=== PATIENT | male | born 1955 | race Caucasian/White ===

== ENCOUNTER 2017-05-07 11:50 | Inpatient (IN) | payer MEDICARE, MEDICAID ==
[~2017-05-07] VITALS: Ht 167.6 cm; Wt 79.4 kg
[2017-05-08] VITALS: BP 139/69
[2017-05-08] MEDS ORDERED: FAMOTIDINE20 MG ORAL (00:52)
[2017-05-08] MEDS ORDERED: ATENOLOL50 MG ORAL (00:52)
[2017-05-08] MEDS ORDERED: LISINOPRIL10 MG ORAL (00:52)
[2017-05-08] MEDS ORDERED: CIPROFLOXACIN500 M2 ORAL (00:52)
[2017-05-08] MEDS ORDERED: IBUPROFEN600 MG ORAL (00:52)
[2017-05-08] MEDS ORDERED: ACETAMINOPHEN-1 EAC2 ORAL (00:52)
[2017-05-08] MEDS ORDERED: HYDROCHLOROTHIA25 MG ORAL (00:52)
[2017-05-08] MEDS ORDERED: POTASSIUM CHLO10 ME3 ORAL (00:52)
[2017-05-08] MEDS ORDERED: AMLODIPINE BESY10 MG ORAL (00:52)
[2017-05-08] MEDS ORDERED: OMEPRAZOLE20 M2 ORAL (00:52)
[2017-05-08] MEDS ORDERED: ASPIRIN EC81 MG ORAL (00:52)
[2017-05-08] MEDS ORDERED: BACLOFEN10 MG ORAL (00:52)
[2017-05-08] MEDS ORDERED: ATORVASTATIN CA40 MG ORAL (00:52)
[2017-05-08] MEDS ORDERED: Vancomycin 1.5 GM/D5W 250ML IVPB ONE (03:00)
[2017-05-08 04:00] VITALS: BP 149/97
[2017-05-08 08:00] VITALS: BP 149/88
[2017-05-08] MEDS: Aspirin EC 81mg tab ORAL SCH (08:22)
[2017-05-08] MEDS: Tylenol #4 Tab (300mg/60mg) ORAL SCH ×3 (08:23→17:29)
[2017-05-08] MEDS: Lisinopril 20mg tab ORAL SCH (08:25)
[2017-05-08 09:14] LABS: BASOPHILS % (AUTO) 0.5 % (0.0-2.0); EOSINOPHILS % (AUTO) 1.8 % (0.0-3.0); LYMPHOCYTES % (AUTO) 16.8 % (20.0-45.0); MEAN CORPUSCULAR HEMOGLOBIN 32.6 PG (27.0-31.0); MEAN CORPUSCULAR HGB CONC 34.4 G/DL (32.0-36.0); MEAN CORPUSCULAR VOLUME 95 FL (80-99); MEAN PLATELET VOLUME 7.3 FL (6.5-10.1); MONOCYTES % (AUTO) 6.6 % (1.0-10.0); NEUTROPHILS % (AUTO) 74.3 % (45.0-75.0); PLATELET COUNT 167 K/UL (150-450); RED BLOOD COUNT 4.03 M/UL (4.70-6.10); RED CELL DISTRIBUTION WIDTH 10.3 % (11.6-14.8); WHITE BLOOD COUNT 11.6 K/UL (4.8-10.8)
[2017-05-08 09:48] LABS: ANION GAP 6 mmol/L (5-15); CALCIUM 8.6 MG/DL (8.5-10.1); CARBON DIOXIDE 31 MMOL/L (21-32); CHLORIDE 105 MMOL/L (98-107); CREATININE 0.7 MG/DL (0.55-1.30); GLOMERULAR FILTRATION RATE > 60 mL/min (>60); POTASSIUM 3.6 MMOL/L (3.5-5.1); SODIUM 142 MMOL/L (136-145)
[2017-05-08] MEDS ORDERED: NS 275ml ONE (10:23)
[2017-05-08] MEDS ORDERED: Tubing IV Secondary IV ONE (10:23)
[2017-05-08 12:01] VITALS: BP 144/86
--- NOTE | 2017-05-08 12:46 | History and Physical ---
History of Present Illness General Date patient seen: May 09, 2017 Time patient seen: 13:00 Reason for Hospitalization: b/l leg cellulitis Present Illness HPI 61y/o male with pmh of HTN, HLD, GERD who presents w/ c/o b/l leg swelling/ redness/pain. Pt lives in [facility] and states he has had worsening b/l leg swelling/pain/redness/warmth for the past several days. C/o subjective fevers/ chills, nausea (no emesis), intermittent abd pain. Denies chest pain, SOB, d/c, dysuria. Also c/o generalized weakness, difficulty ambulating 2/2 b/l leg pain. Pt also noted to be hypotensive initially but this quickly improved w/ IV fluids. Allergies: Coded Allergies: No Known Allergies (Unverified , 05/08/17) Medication History Scheduled Acetaminophen With Codeine (T#4) (Tylenol #4 Tab*), 1 TAB ORAL TID, (Reported) Amlodipine Besylate* (Amlodipine Besylate*), 10 MG ORAL DAILY, (Reported) Aspirin Ec* (Aspirin Ec*), 81 MG ORAL DAILY, (Reported) Atenolol* (Tenormin*), 50 MG ORAL DAILY, (Reported) Atorvastatin Calcium* (Atorvastatin Calcium*), 40 MG ORAL BEDTIME, (Reported) Baclofen* (Baclofen*), 10 MG ORAL BID, (Reported) Ciprofloxacin Hcl* (Ciprofloxacin Hcl*), 500 MG ORAL EVERY 12 HOURS, (Reported) Famotidine (Famotidine), 20 MG ORAL TWICE A DAY, (Reported) Hydrochlorothiazide* (Hydrochlorothiazide*), 25 MG ORAL DAILY, (Reported) Ibuprofen* (Motrin*), 800 MG ORAL BID, (Reported) Lisinopril* (Lisinopril*), 10 MG ORAL DAILY, (Reported) Omeprazole (Omeprazole), 20 MG ORAL DAILY, (Reported) Potassium Chloride (Potassium Chloride), 10 MEQ ORAL DAILY, (Reported) Patient History History Provided By: Patient, Medical Record Healthcare decision maker Resuscitation status Advanced Directive on File Past Medical/Surgical History Past Medical/Surgical History: (1) HTN (hypertension) (2) HLD (hyperlipidemia) (3) GERD (gastroesophageal reflux disease) Family History Family History: Patient reports no known family medical history. Social History Social History: (1) Lives alone without help available Review of Systems Constitutional: Reports: fever Eye: Reports: no symptoms ENT: Reports: no symptoms Respiratory: Reports: no symptoms Cardiovascular: Reports: no symptoms Gastrointestinal: Reports: abdominal pain, nausea Genitourinary: Reports: no symptoms Musculoskeletal: Reports: muscle pain Skin: Reports: no symptoms Psychiatric: Reports: no symptoms Neurological: Reports: no symptoms Endocrine: Reports: no symptoms Hematologic/Lymphatic: Reports: no symptoms All Other Systems: negative except mentioned in HPI Physical Exam Physical Exam Narrative General: alert, cooperative, no distress, appears stated age Head: normocephalic, without obvious abnormality, atraumatic Eyes: conjunctivae/corneas clear. PERRL, EOM's intact Throat: lips, mucosa, and tongue normal. MMM Neck: supple, symmetrical, trachea midline, and no JVD Lungs: clear to auscultation bilaterally Heart: regular rate and rhythm, S1, S2 normal, no murmur, click, rub or gallop Abdomen: soft, non-tender, non-distended, bowel sounds normal; no masses or organomegaly Extremities: extremities normal, atraumatic, no cyanosis or edema Pulses: 2+ and symmetric Skin: +B/l LE erythema/edema/warmth/TTP to below knees Neurologic: grossly normal, no focal deficits Last 24 Hour Vital Signs Date Time Temp Pulse Resp B/P (MAP) Pulse Ox O2 Delivery O2 Flow Rate FiO2 05/08/17 12:01 98.0 70 20 144/86 97 Room Air 05/08/17 11:02 70 149/97 05/08/17 09:22 98.2 05/08/17 09:22 98.2 05/08/17 08:25 149/97 05/08/17 08:24 70 149/97 05/08/17 08:00 97.9 68 20 149/88 96 Room Air 05/08/17 04:00 98.2 70 20 149/97 96 Room Air 05/08/17 00:00 97.9 68 18 139/69 97 Room Air Laboratory Tests Test 05/08/17 08:50 White Blood Count 11.6 K/UL (4.8-10.8) H Red Blood Count 4.03 M/UL (4.70-6.10) L Hemoglobin 13.1 G/DL (14.2-18.0) L Hematocrit 38.1 % (42.0-52.0) L Mean Corpuscular Volume 95 FL (80-99) Mean Corpuscular Hemoglobin 32.6 PG (27.0-31.0) H Mean Corpuscular Hemoglobin Concent 34.4 G/DL (32.0-36.0) Red Cell Distribution Width 10.3 % (11.6-14.8) L Platelet Count 167 K/UL (150-450) Mean Platelet Volume 7.3 FL (6.5-10.1) Neutrophils (%) (Auto) 74.3 % (45.0-75.0) Lymphocytes (%) (Auto) 16.8 % (20.0-45.0) L Monocytes (%) (Auto) 6.6 % (1.0-10.0) Eosinophils (%) (Auto) 1.8 % (0.0-3.0) Basophils (%) (Auto) 0.5 % (0.0-2.0) Sodium Level 142 MMOL/L (136-145) Potassium Level 3.6 MMOL/L (3.5-5.1) Chloride Level 105 MMOL/L (98-107) Carbon Dioxide Level 31 MMOL/L (21-32) Anion Gap 6 mmol/L (5-15) Blood Urea Nitrogen 18 mg/dL (7-18) Creatinine 0.7 MG/DL (0.55-1.30) Estimat Glomerular Filtration Rate > 60 mL/min (>60) Glucose Level 104 MG/DL (74-106) Calcium Level 8.6 MG/DL (8.5-10.1) Height (Feet): 5 Height (Inches): 6.00 Weight (Pounds): 175 Medications Current Medications Medications (Trade) Dose Ordered Sig/Jay Route PRN Reason Start Time Stop Time Status Last Admin Dose Admin Acetaminophen/ Codeine Phosphate (Tylenol #4) 1 ea TID ORAL 05/08/17 09:00 05/15/17 08:59 05/08/17 08:23 Amlodipine Besylate (Norvasc) 10 mg DAILY ORAL 05/08/17 09:00 06/07/17 08:59 05/08/17 08:24 Aspirin (Ecotrin) 81 mg DAILY ORAL 05/08/17 09:00 06/07/17 08:59 05/08/17 08:22 Atenolol (Tenormin) 50 mg DAILY ORAL 05/08/17 09:00 06/07/17 08:59 05/08/17 11:02 Atorvastatin Calcium (Lipitor) 40 mg BEDTIME ORAL 05/08/17 21:00 06/07/17 20:59 Baclofen (Lioresal) 10 mg BID ORAL 05/08/17 09:00 06/07/17 08:59 05/08/17 08:24 Famotidine (Pepcid I.v.) 20 mg Q12HR IVP 05/08/17 09:00 06/07/17 08:59 UNV Hydrochlorothiazide (Hydrodiuril) 25 mg DAILY ORAL 05/08/17 09:00 06/07/17 08:59 05/08/17 08:24 Ibuprofen (Advil) 800 mg BID ORAL 05/08/17 09:00 06/07/17 08:59 05/08/17 08:26 Lisinopril (Prinivil) 10 mg DAILY ORAL 05/08/17 09:00 06/07/17 08:59 05/08/17 08:25 Pantoprazole (Protonix) 40 mg DAILY ORAL 05/08/17 09:00 06/07/17 08:59 05/08/17 08:24 Potassium Chloride (K-Dur) 10 meq DAILY ORAL 05/08/17 09:00 06/07/17 08:59 05/08/17 11:04 Vancomycin HCl (Vanco rx to dose) 1 ea DAILY PRN MISC Per rx protocol 05/08/17 02:30 06/07/17 02:29 Vancomycin HCl 1 gm/Dextrose 275 ml @ 183.708 mls/hr Q12HR@0600,1800 IVPB 05/08/17 18:00 05/13/17 17:59 Assessment/Plan Problem List: (1) Generalized weakness ICD Codes: R53.1 - Weakness SNOMED: 07541343 (2) Hypotension ICD Codes: I95.9 - Hypotension, unspecified SNOMED: 91185898 (3) Bilateral lower leg cellulitis ICD Codes: L03.116 - Cellulitis of left lower limb; L03.115 - Cellulitis of right lower limb SNOMED: 626927834 (4) HTN (hypertension) ICD Codes: I10 - Essential (primary) hypertension SNOMED: 75146958 (5) HLD (hyperlipidemia) ICD Codes: E78.5 - Hyperlipidemia, unspecified SNOMED: 32473779 (6) GERD (gastroesophageal reflux disease) ICD Codes: K21.9 - Gastro-esophageal reflux disease without esophagitis SNOMED: 436825108 Status: stable Assessment/Plan Admit inpt ID consulted Empiric vancomycin (05/08-) Check BLE venous duplex Check U/A w/ reflex IVFs Trend CBC, BMP Check B12/folate, TSH, Vit D, ferritin, Fe panel Cont home meds but caution BP meds PT/OT eval Pt may possibly need SNF vs [facility] placement as he lives in [facility] alone DVT Prophylaxis: SCD, HSQ Code Status: Full Hospital Classification Declaration: Based on this initial evaluation, and depending on the patient's clinical course, I anticipate that this patient will require hospitalization for 2-3 days for BLE cellulitis, hypotension and close respiratory/hemodynamic monitoring. Disposition: Once the patient is stable to leave the hospital, I anticipate the patient will likely be discharged to the following environment: SNF vs [facility] I spent 70 minutes on this patient's case, and 37 minutes were dedicated to counseling and/or care coordination. Discussed with patient/family, nursing staff, SW/CM, ID regarding clinical status, treatment course, and disposition planning. Time of note may not reflect time of encounter. Xena Lu M.D. May 08, 2017 12:46
--- NOTE | 2017-05-08 14:55 | Infectious Diseases Prog Note ---
Assessment/Plan Assessment/Plan Full consult to follow: A) 1) bilateral leg cellulitis, mild leukocytosis 2) pmh noted 3) allergies - negative P) 1) vancomycin 2) watch labs 3) d/w Dr. Mccallum 4) thank you Subjective Allergies: Coded Allergies: No Known Allergies (Unverified , 05/08/17) Objective Vital Signs Last 24 Hour Vital Signs Date Time Temp Pulse Resp B/P (MAP) Pulse Ox O2 Delivery O2 Flow Rate FiO2 05/08/17 14:33 98.0 05/08/17 12:01 98.0 70 20 144/86 97 Room Air 05/08/17 11:02 70 149/97 05/08/17 09:22 98.2 05/08/17 08:25 149/97 05/08/17 08:24 70 149/97 05/08/17 08:00 97.9 68 20 149/88 96 Room Air 05/08/17 04:00 98.2 70 20 149/97 96 Room Air 05/08/17 00:00 97.9 68 18 139/69 97 Room Air Height (Feet): 5 Height (Inches): 6.00 Weight (Pounds): 175 Laboratory Tests Test 05/08/17 08:50 White Blood Count 11.6 K/UL (4.8-10.8) H Red Blood Count 4.03 M/UL (4.70-6.10) L Hemoglobin 13.1 G/DL (14.2-18.0) L Hematocrit 38.1 % (42.0-52.0) L Mean Corpuscular Volume 95 FL (80-99) Mean Corpuscular Hemoglobin 32.6 PG (27.0-31.0) H Mean Corpuscular Hemoglobin Concent 34.4 G/DL (32.0-36.0) Red Cell Distribution Width 10.3 % (11.6-14.8) L Platelet Count 167 K/UL (150-450) Mean Platelet Volume 7.3 FL (6.5-10.1) Neutrophils (%) (Auto) 74.3 % (45.0-75.0) Lymphocytes (%) (Auto) 16.8 % (20.0-45.0) L Monocytes (%) (Auto) 6.6 % (1.0-10.0) Eosinophils (%) (Auto) 1.8 % (0.0-3.0) Basophils (%) (Auto) 0.5 % (0.0-2.0) Sodium Level 142 MMOL/L (136-145) Potassium Level 3.6 MMOL/L (3.5-5.1) Chloride Level 105 MMOL/L (98-107) Carbon Dioxide Level 31 MMOL/L (21-32) Anion Gap 6 mmol/L (5-15) Blood Urea Nitrogen 18 mg/dL (7-18) Creatinine 0.7 MG/DL (0.55-1.30) Estimat Glomerular Filtration Rate > 60 mL/min (>60) Glucose Level 104 MG/DL (74-106) Calcium Level 8.6 MG/DL (8.5-10.1) Current Medications Medications (Trade) Dose Ordered Sig/Jay Route PRN Reason Start Time Stop Time Status Last Admin Dose Admin Acetaminophen/ Codeine Phosphate (Tylenol #4) 1 ea TID ORAL 05/08/17 09:00 05/15/17 08:59 05/08/17 13:34 Amlodipine Besylate (Norvasc) 10 mg DAILY ORAL 05/08/17 09:00 06/07/17 08:59 05/08/17 08:24 Aspirin (Ecotrin) 81 mg DAILY ORAL 05/08/17 09:00 06/07/17 08:59 05/08/17 08:22 Atenolol (Tenormin) 50 mg DAILY ORAL 05/08/17 09:00 06/07/17 08:59 05/08/17 11:02 Atorvastatin Calcium (Lipitor) 40 mg BEDTIME ORAL 05/08/17 21:00 06/07/17 20:59 Baclofen (Lioresal) 10 mg BID ORAL 05/08/17 09:00 06/07/17 08:59 05/08/17 08:24 Famotidine (Pepcid I.v.) 20 mg Q12HR IVP 05/08/17 09:00 06/07/17 08:59 UNV Hydrochlorothiazide (Hydrodiuril) 25 mg DAILY ORAL 05/08/17 09:00 06/07/17 08:59 05/08/17 08:24 Ibuprofen (Advil) 800 mg BID ORAL 05/08/17 09:00 06/07/17 08:59 05/08/17 08:26 Lisinopril (Prinivil) 10 mg DAILY ORAL 05/08/17 09:00 06/07/17 08:59 05/08/17 08:25 Pantoprazole (Protonix) 40 mg DAILY ORAL 05/08/17 09:00 06/07/17 08:59 05/08/17 08:24 Potassium Chloride (K-Dur) 10 meq DAILY ORAL 05/08/17 09:00 06/07/17 08:59 05/08/17 11:04 Vancomycin HCl (Vanco rx to dose) 1 ea DAILY PRN MISC Per rx protocol 05/08/17 02:30 06/07/17 02:29 Vancomycin HCl 1 gm/Dextrose 275 ml @ 183.708 mls/hr Q12HR@0600,1800 IVPB 05/08/17 18:00 05/13/17 17:59 SYLVIA ALLEN May 08, 2017 14:55
[2017-05-08 16:00] VITALS: BP 139/79
--- NOTE | 2017-05-08 16:45 | Consultation ---
DATE OF CONSULTATION: 05/08/2017 INFECTIOUS DISEASE CONSULTATION CONSULTING PHYSICIAN: Stan Wallace M.D. ATTENDING PHYSICIAN: Erika Pham M.D. I was asked by Dr. Mccallum, Dr. Pham's associate to see this patient. REASON FOR CONSULTATION: The patient's chief complaint coming into the hospital is bilateral leg swelling and warmth and cellulitis. HISTORY OF PRESENT ILLNESS: This is a 61-year-old male, who comes into the [facility] with bilateral leg cellulitis and hypertension. Infectious Diseases consultation requested for antibiotic management. The patient has had pain in his legs for several days. The patient was started on vancomycin, which I concur with. Case discussed with Dr. Mccallum and the patient. The patient also initially was hypotensive but blood pressure is stable at this time. Not clear if he has hypotension or hypertension, his blood pressure is elevated actually. MAR was noted. Orders noted. Notes and records were reviewed. PAST MEDICAL HISTORY: The patient's past medical history includes the following. The patient has a past medical history of hypertension. He has a history of emphysema/COPD, history of nicotine dependency. He states history of stroke, it is unclear if he has had any stroke in the past, I am not sure if he has had a vascular stroke in the past. The patient has no history of diabetes. He does have a history of hernia, . He has a history of hypercholesterolemia and hyperlipidemia. MEDICATIONS: Upon reviewing the MAR, he is on the following medications. He is on Lipitor, vancomycin, acetaminophen. He is on amlodipine, Norvasc, aspirin, atenolol, baclofen, hydrochlorothiazide, ibuprofen, lisinopril, potassium chloride, famotidine, pantoprazole, and vancomycin. Vancomycin to be dosed by pharmacy. ALLERGIES: No known drug or antibiotic allergies. No antibiotic allergies. SOCIAL HISTORY: Positive for smoking. No alcohol or drug abuse. FAMILY HISTORY: Noncontributory. Negative for exposure to tuberculosis or cancer. REVIEW OF SYSTEMS: CONSTITUTIONAL: The patient has generalized weakness and fatigue. No focal weakness. No fever, chills, night sweats, or weight loss. HEAD AND NECK: No thrush or dysphagia. No neck stiffness. CARDIAC: No chest pain or palpitation. GASTROINTESTINAL: No nausea, vomiting, or diarrhea. GENITOURINARY: No Grady. No dysuria or frequency. PULMONARY: No congestion or short of breath. No hemoptysis or secretions. SKIN: No rash or itching. EXTREMITIES: He has lower extremity pain. NEUROLOGIC: No seizures. PHYSICAL EXAMINATION: GENERAL: Alert and responsive, in no acute distress. VITAL SIGNS: Temperature is 98.0 degrees, pulse rate 70, respiratory rate 20, blood pressure 144/86, saturation 97%. HEAD AND NECK: Oral exam, no thrush. Eye exam, no icterus. Normocephalic. No facial droop. NECK: No neck stiffness. Neck is supple. HEART: Regular. No gallop or murmur. No friction rub. LUNGS: Clear bilaterally. No rhonchi or rales. ABDOMEN: Soft. Positive bowel sounds. Nontender. SKIN: No rash. MUSCULOSKELETAL: No evidence of septic arthritis. Lower extremity exam, he has bilateral leg swelling and warmth. No significant redness noted, however, it may be mild. He has more so on the right than the left. PERIPHERAL VASCULAR: No gangrene. GENITOURINARY: No Grady. No CVA tenderness. RECTAL: Deferred. LINES: IV sites are without phlebitis. NEUROLOGIC: Intact. Nonfocal. LABORATORY DATA: Laboratory is as follows. White count 11.6, hemoglobin 13.1. Creatine is 0.7. ASSESSMENT AND PLAN: 1. The patient has bilateral leg cellulitis, right greater than left, most likely this is Staphylococcus aureus including methicillin-resistant Staphylococcus aureus and Streptococcus pyogenes infection. Continue vancomycin for IV antibiotics. Once the patient improves transition to oral antibiotics such as Keflex plus Bactrim for another week or so. Continue antibiotics, vancomycin for now for two to three days, then consider switching to oral antibiotics once he continues to improve. 2. Hypertension, blood pressure control per primary. 3. No history of diabetes. 4. History of hernia. 5. Chronic obstructive pulmonary disease and emphysema. 6. Possible hyperlipidemia. 7. Questionable history of stroke. 8. No known drug allergies. 9. Family history is noncontributory. Negative for exposure to tuberculosis or cancer. He does have history of diabetes in the family. 10. Social history positive for smoking. No alcohol or drug abuse. 11. MAR was noted. 12. Case discussed with RN. 13. Case discussed with Dr. Mccallum. 14. Continue treatment per primary consultants. 15. Notes and records were noted. Thank you, Dr. Pham. I was asked by Dr. Mccallum who is Dr. Pham's associate to see this patient. Stan Wallace M.D. DR: Linda JOB#: [id number] CC:
[2017-05-08] MEDS: Vancomycin 1gm/D5W 275ml IVPB SCH ×2 (17:40)
[2017-05-08 18:38] LABS: APPEARANCE,URINE CLEAR; KETONES,URINE NEGATIVE (NEGATIVE); LEUKOCYTE ESTERASE ,URINE 1+ (NEGATIVE); NITRITE,URINE NEGATIVE (NEGATIVE); PH,URINE 6.5 (4.5-8.0); PROTEIN,URINE NEGATIVE (NEGATIVE); UROBILINOGEN,URINE NORMAL MG/DL (0.0-1.0)
[2017-05-08 18:47] LABS: RBC,URINE 0-2 /HPF (0 - 0); WBC,URINE 20-30 /HPF (0 - 0)
[2017-05-08 18:48] LABS: BACTERIA,URINE OCCASIONAL /HPF; SQUAMOUS EPITHELIAL CELL,UR FEW /LPF (NONE/OCC)
[2017-05-08 20:00] VITALS: BP 147/73
[2017-05-08] MEDS ORDERED: Norco 5mg/325mg tab ORAL PRN (20:30)
[2017-05-08] MEDS: Docusate 100mg cap ORAL SCH (20:33)
[2017-05-09] VITALS (7 sets, daily range): BP systolic 136–166; BP diastolic 66–87
[2017-05-09] MEDS: Vancomycin 1gm/D5W 275ml IVPB SCH ×6 (05:30→20:00)
[2017-05-09 07:52] LABS: BASOPHILS % (AUTO) 0.7 % (0.0-2.0); EOSINOPHILS % (AUTO) 2.4 % (0.0-3.0); LYMPHOCYTES % (AUTO) 15.7 % (20.0-45.0); MEAN CORPUSCULAR HEMOGLOBIN 33.7 PG (27.0-31.0); MEAN CORPUSCULAR HGB CONC 35.7 G/DL (32.0-36.0); MEAN CORPUSCULAR VOLUME 94 FL (80-99); MEAN PLATELET VOLUME 7.1 FL (6.5-10.1); MONOCYTES % (AUTO) 4.9 % (1.0-10.0); NEUTROPHILS % (AUTO) 76.3 % (45.0-75.0); PLATELET COUNT 143 K/UL (150-450); RED CELL DISTRIBUTION WIDTH 10.2 % (11.6-14.8); WHITE BLOOD COUNT 7.7 K/UL (4.8-10.8)
[2017-05-09 08:09] LABS: ANION GAP 7 mmol/L (5-15); CALCIUM 8.1 MG/DL (8.5-10.1); CARBON DIOXIDE 31 MMOL/L (21-32); CHLORIDE 101 MMOL/L (98-107); CREATININE 0.8 MG/DL (0.55-1.30); FERRITIN 158 NG/ML (8-388); GLOMERULAR FILTRATION RATE > 60 mL/min (>60); MAGNESIUM 1.7 MG/DL (1.8-2.4); POTASSIUM 3.1 MMOL/L (3.5-5.1); SODIUM 139 MMOL/L (136-145)
[2017-05-09 08:20] LABS: IRON 38 ug/dL (50-175); TOTAL IRON BINDING CAPACITY 212 ug/dL (250-450)
[2017-05-09 08:29] LABS: THYROID STIMULATING HORMONE 2.286 uiU/mL (0.358-3.740)
[2017-05-09 08:55] LABS: FOLIC ACID 11.1 NG/ML (3.1-17.5)
[2017-05-09] MEDS: Docusate 100mg cap ORAL SCH ×2 (09:20→17:15)
[2017-05-09] MEDS: Aspirin EC 81mg tab ORAL SCH (09:20)
[2017-05-09] MEDS: Lisinopril 20mg tab ORAL SCH (09:20)
[2017-05-09] MEDS: Norco 10mg/325mg tab ORAL PRN ×2 (09:24→17:15)
--- NOTE | 2017-05-09 11:55 | Infectious Diseases Prog Note ---
Assessment/Plan Assessment/Plan A) 1) bilateral leg cellulitis, mild leukocytosis - cellulitis better, less warmth and swelling, leukocytosis resolved 2) possible uti with urgency of urination, ? dysuria - ua +, urine culture pending 3) htn, copd, ? cva hx, hernia, ? hyperlipidemia 4) allergies - negative 5) mar noted, notes and recorded, sh - + smoking, fh-nc 6) d/w RN P) 1) vancomycin, add ceftriaxone 2) watch labs, check urine culture 3) d/w Dr. Mccallum 4) orders entered and noted 5) continue tx per primary and consultants Subjective Constitutional: Denies: fever HEENT: Denies: congestion Respiratory: Denies: shortness of breath Cardiovascular: Denies: chest pain Gastrointestinal/Abdominal: Denies: nausea, vomiting, diarrhea Genitourinary: Reports: dysuria, frequency Psychiatric: Denies: depression Skin: Denies: rash Endocrine: Denies: feels warm Hematologic: Denies: bleeding Musculoskeletal: Denies: pain Allergies: Coded Allergies: No Known Allergies (Unverified , 05/08/17) Objective Vital Signs Last 24 Hour Vital Signs Date Time Temp Pulse Resp B/P (MAP) Pulse Ox O2 Delivery O2 Flow Rate FiO2 05/09/17 10:33 97.5 05/09/17 09:20 137/66 05/09/17 09:20 62 137/66 05/09/17 09:19 62 137/66 05/09/17 08:00 97.5 62 17 137/66 97 Room Air 05/09/17 04:00 97.5 59 20 136/73 95 Room Air 05/09/17 00:00 98.2 60 20 139/71 94 Room Air 05/08/17 20:00 97.5 61 20 147/73 95 Room Air 05/08/17 18:28 96.8 05/08/17 18:28 96.8 05/08/17 16:00 96.8 58 20 139/79 96 Room Air 05/08/17 12:01 98.0 70 20 144/86 97 Room Air Height (Feet): 5 Height (Inches): 6.00 Weight (Pounds): 175 General Appearance: no acute distress HEENT: normocephalic, atraumatic, anicteric, mucous membranes moist, EOMI, pharynx normal, supple, no JVD Respiratory/Chest: lungs clear, normal breath sounds, no respiratory distress, no accessory muscle use Cardiovascular: normal rate, regular rhythm, no gallop/murmur, no JVD Abdomen: normal bowel sounds, soft, non tender, no organomegaly, non distended Genitourinary: other - no raines, no cva pain Extremities: no cyanosis, other - less warmth and swelling of both legs on exam Skin: no rash Neurologic/Psychiatric: entry specialist II-XII grossly normal, alert, oriented x 3, responsive Lymphatic: no neck adenopathy Musculoskeletal: no effusion Objective none urine culture pending Laboratory Tests Test 05/08/17 16:00 05/09/17 06:15 Urine Color Pale yellow Urine Appearance Clear Urine pH 6.5 (4.5-8.0) Urine Specific [place] 1.010 (1.005-1.035) Urine Protein Negative (NEGATIVE) Urine Glucose (UA) Negative (NEGATIVE) Urine Ketones Negative (NEGATIVE) Urine Occult Blood 1+ (NEGATIVE) H Urine Nitrite Negative (NEGATIVE) Urine Bilirubin Negative (NEGATIVE) Urine Urobilinogen Normal MG/DL (0.0-1.0) Urine Leukocyte Esterase 1+ (NEGATIVE) H Urine RBC 0-2 /HPF (0 - 0) H Urine WBC 20-30 /HPF (0 - 0) H Urine Squamous Epithelial Cells Few /LPF (NONE/OCC) Urine Bacteria Occasional /HPF (NONE) White Blood Count 7.7 K/UL (4.8-10.8) Red Blood Count 3.80 M/UL (4.70-6.10) L Hemoglobin 12.8 G/DL (14.2-18.0) L Hematocrit 35.9 % (42.0-52.0) L Mean Corpuscular Volume 94 FL (80-99) Mean Corpuscular Hemoglobin 33.7 PG (27.0-31.0) H Mean Corpuscular Hemoglobin Concent 35.7 G/DL (32.0-36.0) Red Cell Distribution Width 10.2 % (11.6-14.8) L Platelet Count 143 K/UL (150-450) L Mean Platelet Volume 7.1 FL (6.5-10.1) Neutrophils (%) (Auto) 76.3 % (45.0-75.0) H Lymphocytes (%) (Auto) 15.7 % (20.0-45.0) L Monocytes (%) (Auto) 4.9 % (1.0-10.0) Eosinophils (%) (Auto) 2.4 % (0.0-3.0) Basophils (%) (Auto) 0.7 % (0.0-2.0) Sodium Level 139 MMOL/L (136-145) Potassium Level 3.1 MMOL/L (3.5-5.1) L Chloride Level 101 MMOL/L (98-107) Carbon Dioxide Level 31 MMOL/L (21-32) Anion Gap 7 mmol/L (5-15) Blood Urea Nitrogen 18 mg/dL (7-18) Creatinine 0.8 MG/DL (0.55-1.30) Estimat Glomerular Filtration Rate > 60 mL/min (>60) Glucose Level 163 MG/DL (74-106) H Calcium Level 8.1 MG/DL (8.5-10.1) L Magnesium Level 1.7 MG/DL (1.8-2.4) L Iron Level 38 ug/dL (50-175) L Total Iron Binding Capacity 212 ug/dL (250-450) L Percent Iron Saturation 18 % (15-50) Unsaturated Iron Binding 174 ug/dL (112-346) Ferritin 158 NG/ML (8-388) Vitamin B12 Level 351 PG/ML (193-986) Vitamin D 25-Hydroxy Pending 25-Hydroxy Vitamin D2 Pending 25-Hydroxy Vitamin D3 Pending Folate 11.1 NG/ML (3.1-17.5) Thyroid Stimulating Hormone (TSH) 2.286 uiU/mL (0.358-3.740) Current Medications Medications (Trade) Dose Ordered Sig/Jay Route PRN Reason Start Time Stop Time Status Last Admin Dose Admin Acetaminophen (Tylenol) 650 mg Q4H PRN ORAL Mild Pain/Temp > 100.5 05/08/17 20:30 06/07/17 20:29 Acetaminophen/ Hydrocodone Bitart ([place] 10/325) 1 ea Q4H PRN ORAL For severe Pain 05/08/17 20:30 05/15/17 20:29 05/09/17 09:24 Acetaminophen/ Hydrocodone Bitart ([place] 5/325) 1 tab Q4H PRN ORAL Moderate Pain (Pain Scale 4-6) 05/08/17 20:30 05/15/17 20:29 05/08/17 20:33 Amlodipine Besylate (Norvasc) 10 mg DAILY ORAL 05/08/17 09:00 06/07/17 08:59 05/09/17 09:19 Aspirin (Ecotrin) 81 mg DAILY ORAL 05/08/17 09:00 06/07/17 08:59 05/09/17 09:20 Atenolol (Tenormin) 50 mg DAILY ORAL 05/08/17 09:00 06/07/17 08:59 05/09/17 09:20 Atorvastatin Calcium (Lipitor) 40 mg BEDTIME ORAL 05/08/17 21:00 06/07/17 20:59 05/08/17 20:32 Baclofen (Lioresal) 10 mg BID ORAL 05/08/17 09:00 06/07/17 08:59 05/09/17 09:19 Docusate Sodium (Colace) 100 mg TWICE A DAY ORAL 05/08/17 21:00 06/07/17 20:59 05/09/17 09:20 Hydrochlorothiazide (Hydrodiuril) 25 mg DAILY ORAL 05/08/17 09:00 06/07/17 08:59 05/09/17 09:23 Ibuprofen (Advil) 800 mg BID ORAL 05/08/17 09:00 06/07/17 08:59 05/08/17 17:40 Lisinopril (Prinivil) 10 mg DAILY ORAL 05/08/17 09:00 06/07/17 08:59 05/09/17 09:20 Pantoprazole (Protonix) 40 mg DAILY ORAL 05/08/17 09:00 06/07/17 08:59 05/09/17 09:19 Potassium Chloride (K-Dur) 10 meq DAILY ORAL 05/08/17 09:00 06/07/17 08:59 05/09/17 09:19 Vancomycin HCl (Vanco rx to dose) 1 ea DAILY PRN MISC Per rx protocol 05/08/17 02:30 06/07/17 02:29 Vancomycin HCl 1 gm/Dextrose 275 ml @ 183.708 mls/hr Q12HR@0600,1800 IVPB 05/08/17 18:00 05/13/17 17:59 05/09/17 05:30 SYLVIA ALLEN May 09, 2017 11:55
[2017-05-09] MEDS ORDERED: LORazepam Inj 2mg/ml 1ml IV PRN (12:15)
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
[2017-05-09] MEDS ORDERED: LORazepam 0.5mg tab ORAL PRN (12:30)
[2017-05-09] MEDS: cefTRIAXone 1 GM in D5W 55 ML IVPB SCH (13:36)
[2017-05-09] MEDS ORDERED: Atorvastatin 20mg tab ORAL SCH (21:00)
--- NOTE | 2017-05-10 01:04 | Consultation ---
History of Present Illness General Date patient seen: May 09, 2017 Present Illness HPI 61y/o male with pmh of HTN, HLD, GERD who presents w/ c/o b/l leg swelling/ redness/pain. the pt is c/o weakness and decrease energy, anxiety. Allergies: Coded Allergies: No Known Allergies (Unverified , 05/08/17) Medication History Scheduled Acetaminophen With Codeine (T#4) (Tylenol #4 Tab*), 1 TAB ORAL TID, (Reported) Amlodipine Besylate* (Amlodipine Besylate*), 10 MG ORAL DAILY, (Reported) Aspirin Ec* (Aspirin Ec*), 81 MG ORAL DAILY, (Reported) Atenolol* (Tenormin*), 50 MG ORAL DAILY, (Reported) Atorvastatin Calcium* (Atorvastatin Calcium*), 40 MG ORAL BEDTIME, (Reported) Baclofen* (Baclofen*), 10 MG ORAL BID, (Reported) Cephalexin* (Keflex*), 500 MG ORAL Q6H Famotidine (Famotidine), 20 MG ORAL TWICE A DAY, (Reported) Hydrochlorothiazide* (Hydrochlorothiazide*), 25 MG ORAL DAILY, (Reported) Ibuprofen* (Motrin*), 800 MG ORAL BID, (Reported) Lisinopril* (Lisinopril*), 10 MG ORAL DAILY, (Reported) Omeprazole (Omeprazole), 20 MG ORAL DAILY, (Reported) Potassium Chloride (Potassium Chloride), 20 MEQ ORAL DAILY Trimethoprim/Sulfamethoxazole 160/800* (Bactrim Ds Tablet*), 1 TAB ORAL Q12H Discontinued Medications Ciprofloxacin Hcl* (Ciprofloxacin Hcl*), 500 MG ORAL EVERY 12 HOURS, (Reported) Discontinued Reason: MD discontinued med Potassium Chloride (Potassium Chloride), 10 MEQ ORAL DAILY, (Reported) Discontinued Reason: Medication dose changed Patient History History Provided By: Patient, Medical Record, PMD Healthcare decision maker Resuscitation status Advanced Directive on File Past Medical/Surgical History Past Medical/Surgical History: (1) Lower extremity cellulitis (2) GERD (gastroesophageal reflux disease) (3) HTN (hypertension) (4) HLD (hyperlipidemia) (5) Generalized weakness (6) Bilateral lower leg cellulitis (7) Hypotension (8) UTI (urinary tract infection) (9) Acute encephalopathy (10) Hypokalemia Review of Systems Psychiatric: Reports: prior hx, anxiety Physical Exam General Appearance: no apparent distress, alert Neurologic: alert, oriented x 3, responsive, normal mood/affect Last 24 Hour Vital Signs Date Time Temp Pulse Resp B/P (MAP) Pulse Ox O2 Delivery O2 Flow Rate FiO2 05/09/17 23:45 97.3 64 20 148/73 97 Room Air 05/09/17 19:43 96.8 68 20 166/87 97 Room Air 05/09/17 19:13 97.9 05/09/17 16:00 97.9 62 17 147/78 96 Room Air 05/09/17 12:00 97.7 64 17 160/81 98 Room Air 05/09/17 09:20 137/66 05/09/17 09:20 62 137/66 05/09/17 09:19 62 137/66 05/09/17 08:00 97.5 62 17 137/66 97 Room Air 05/09/17 04:00 97.5 59 20 136/73 95 Room Air Laboratory Tests Test 05/09/17 06:15 05/09/17 17:15 White Blood Count 7.7 K/UL (4.8-10.8) Red Blood Count 3.80 M/UL (4.70-6.10) L Hemoglobin 12.8 G/DL (14.2-18.0) L Hematocrit 35.9 % (42.0-52.0) L Mean Corpuscular Volume 94 FL (80-99) Mean Corpuscular Hemoglobin 33.7 PG (27.0-31.0) H Mean Corpuscular Hemoglobin Concent 35.7 G/DL (32.0-36.0) Red Cell Distribution Width 10.2 % (11.6-14.8) L Platelet Count 143 K/UL (150-450) L Mean Platelet Volume 7.1 FL (6.5-10.1) Neutrophils (%) (Auto) 76.3 % (45.0-75.0) H Lymphocytes (%) (Auto) 15.7 % (20.0-45.0) L Monocytes (%) (Auto) 4.9 % (1.0-10.0) Eosinophils (%) (Auto) 2.4 % (0.0-3.0) Basophils (%) (Auto) 0.7 % (0.0-2.0) Sodium Level 139 MMOL/L (136-145) Potassium Level 3.1 MMOL/L (3.5-5.1) L Chloride Level 101 MMOL/L (98-107) Carbon Dioxide Level 31 MMOL/L (21-32) Anion Gap 7 mmol/L (5-15) Blood Urea Nitrogen 18 mg/dL (7-18) Creatinine 0.8 MG/DL (0.55-1.30) Estimat Glomerular Filtration Rate > 60 mL/min (>60) Glucose Level 163 MG/DL (74-106) H Calcium Level 8.1 MG/DL (8.5-10.1) L Magnesium Level 1.7 MG/DL (1.8-2.4) L Iron Level 38 ug/dL (50-175) L Total Iron Binding Capacity 212 ug/dL (250-450) L Percent Iron Saturation 18 % (15-50) Unsaturated Iron Binding 174 ug/dL (112-346) Ferritin 158 NG/ML (8-388) Vitamin B12 Level 351 PG/ML (193-986) Vitamin D 25-Hydroxy Pending 25-Hydroxy Vitamin D2 Pending 25-Hydroxy Vitamin D3 Pending Folate 11.1 NG/ML (3.1-17.5) Thyroid Stimulating Hormone (TSH) 2.286 uiU/mL (0.358-3.740) Vancomycin Level Trough 4.8 ug/mL (5.0-12.0) L Height (Feet): 5 Height (Inches): 6.00 Weight (Pounds): 175 Medications Current Medications Medications (Trade) Dose Ordered Sig/Jay Route PRN Reason Start Time Stop Time Status Last Admin Dose Admin Acetaminophen (Tylenol) 650 mg Q4H PRN ORAL Mild Pain/Temp > 100.5 05/08/17 20:30 06/07/17 20:29 Acetaminophen/ Hydrocodone Bitart ([place] 10/325) 1 ea Q4H PRN ORAL For severe Pain 05/08/17 20:30 05/15/17 20:29 05/09/17 17:15 Acetaminophen/ Hydrocodone Bitart ([place] 5/325) 1 tab Q4H PRN ORAL Moderate Pain (Pain Scale 4-6) 05/08/17 20:30 05/15/17 20:29 05/08/17 20:33 Amlodipine Besylate (Norvasc) 10 mg DAILY ORAL 05/08/17 09:00 06/07/17 08:59 05/09/17 09:19 Aspirin (Ecotrin) 81 mg DAILY ORAL 05/08/17 09:00 06/07/17 08:59 05/09/17 09:20 Atenolol (Tenormin) 50 mg DAILY ORAL 05/08/17 09:00 06/07/17 08:59 05/09/17 09:20 Atorvastatin Calcium (Lipitor) 40 mg BEDTIME ORAL 05/09/17 21:00 06/08/17 20:59 05/09/17 21:41 Baclofen (Lioresal) 10 mg BID ORAL 05/08/17 09:00 06/07/17 08:59 05/09/17 17:15 Ceftriaxone Sodium 1 gm/ Dextrose 55 ml @ 110 mls/hr Q24H IVPB 05/09/17 13:30 05/16/17 13:29 05/09/17 13:36 Docusate Sodium (Colace) 100 mg TWICE A DAY ORAL 05/08/17 21:00 06/07/17 20:59 05/09/17 17:15 Ibuprofen (Advil) 800 mg BID ORAL 05/08/17 09:00 06/07/17 08:59 05/08/17 17:40 Lisinopril (Prinivil) 10 mg DAILY ORAL 05/08/17 09:00 06/07/17 08:59 05/09/17 09:20 Lorazepam (Ativan 2mg/ml 1ml) 1 mg Q4H PRN IV agitation 05/09/17 12:15 05/16/17 12:14 Lorazepam (Ativan) 0.5 mg Q4HR PRN ORAL agitation 05/09/17 12:30 05/16/17 12:29 05/09/17 13:11 Pantoprazole (Protonix) 40 mg DAILY ORAL 05/08/17 09:00 06/07/17 08:59 05/09/17 09:19 Potassium Chloride (K-Dur) 10 meq DAILY ORAL 05/08/17 09:00 06/07/17 08:59 05/09/17 09:19 Vancomycin HCl (Vanco rx to dose) 1 ea DAILY PRN MISC Per rx protocol 05/08/17 02:30 06/07/17 02:29 Vancomycin HCl 1 gm/Dextrose 275 ml @ 183.708 mls/hr Q8H IVPB 05/09/17 20:00 05/14/17 19:59 Assessment/Plan Status: stable, progressing Assessment/Plan anxiety d/o. the pt has capacity to make decision cont current meds Melany Garibay M.D. May 10, 2017 01:04
[2017-05-10] MEDS: Vancomycin 1gm/D5W 275ml IVPB SCH ×4 (03:49→12:24)
[2017-05-10 04:00] VITALS: BP 151/82
[2017-05-10 08:00] VITALS: BP 140/85
[2017-05-10] MEDS: Aspirin EC 81mg tab ORAL SCH (10:07)
[2017-05-10] MEDS: Docusate 100mg cap ORAL SCH (10:08)
[2017-05-10] MEDS: Norco 10mg/325mg tab ORAL PRN (10:19)
[2017-05-10] MEDS: Lisinopril 20mg tab ORAL SCH (10:19)
[2017-05-10 12:00] VITALS: BP 149/81
[2017-05-10] MEDS: cefTRIAXone 1 GM in D5W 55 ML IVPB SCH ×2 (13:58→14:16)
[2017-05-10] MEDS ORDERED: KEFLEX500 MG ORAL (14:18)
[2017-05-10] MEDS ORDERED: BACTRIM DS TAB1 EAC1 ORAL (14:19)
[2017-05-10] MEDS ORDERED: POTASSIUM CHLO20 ME2 ORAL (15:54)
[2017-05-10 16:00] VITALS: BP 145/81
--- NOTE | 2017-05-10 16:28 | Infectious Diseases Prog Note ---
Assessment/Plan Assessment/Plan A) 1) bilateral leg cellulitis, mild leukocytosis - cellulitis resolving, less warmth and swelling, leukocytosis resolved 2) possible gram neg uti with urgency of urination, ? dysuria - ua +, urine culture with gram neg but less 50, 000 3) htn, copd, ? cva hx, hernia, ? hyperlipidemia 4) allergies - negative 5) mar noted, notes and recorded, sh - + smoking, fh-nc 6) d/w RN P) 1) vancomycin and rocephin, can discharge on po keflex plus bactrim for one week 2) watch labs, check urine culture final 3) d/w Dr. Mccallum 4) orders entered and noted 5) continue tx per primary and consultants Subjective Constitutional: Denies: fever HEENT: Denies: congestion Respiratory: Denies: shortness of breath Breasts: Denies: tenderness Cardiovascular: Denies: chest pain Gastrointestinal/Abdominal: Denies: nausea, vomiting, diarrhea Genitourinary: Denies: dysuria, hematuria, frequency Neurologic: Denies: headache Psychiatric: Denies: depression Skin: Denies: rash Hematologic: Denies: bleeding Musculoskeletal: Denies: pain Allergies: Coded Allergies: No Known Allergies (Unverified , 05/08/17) Objective Vital Signs Last 24 Hour Vital Signs Date Time Temp Pulse Resp B/P (MAP) Pulse Ox O2 Delivery O2 Flow Rate FiO2 05/10/17 16:00 98.6 63 20 145/81 98 Room Air 05/10/17 12:00 98.2 61 20 149/81 100 Room Air 05/10/17 11:18 98.2 05/10/17 11:07 98.2 05/10/17 10:19 140/85 05/10/17 10:19 66 140/85 05/10/17 10:08 66 140/85 05/10/17 08:00 98.2 66 20 140/85 97 Room Air 05/10/17 04:00 98.1 62 20 151/82 95 Room Air 05/09/17 23:45 97.3 64 20 148/73 97 Room Air 05/09/17 19:43 96.8 68 20 166/87 97 Room Air Height (Feet): 5 Height (Inches): 6.00 Weight (Pounds): 175 General Appearance: no acute distress HEENT: normocephalic, atraumatic, anicteric, mucous membranes moist, EOMI, pharynx normal, supple, no JVD Respiratory/Chest: lungs clear, normal breath sounds, no respiratory distress, no accessory muscle use Cardiovascular: normal rate, regular rhythm, no gallop/murmur, no JVD Abdomen: normal bowel sounds, soft, non tender, no organomegaly, non distended Genitourinary: other - no raines Extremities: no cyanosis, other - less swelling and warmth of bilateral leg cellulitis Skin: no rash 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 Complete 05/08/17 16:00 Urine,Clean Catch Urine Culture - Preliminary Gram Negative Bacillus 1 Resulted 05/08/17 05:30 Rectum VRE Culture - Final NO VANCOMYCIN RESISTANT ENTEROCOCCUS ... Complete Labs Test 05/08/17 08:50 05/08/17 16:00 05/09/17 06:15 05/09/17 17:15 White Blood Count 11.6 K/UL (4.8-10.8) 7.7 K/UL (4.8-10.8) Red Blood Count 4.03 M/UL (4.70-6.10) 3.80 M/UL (4.70-6.10) Hemoglobin 13.1 G/DL (14.2-18.0) 12.8 G/DL (14.2-18.0) Hematocrit 38.1 % (42.0-52.0) 35.9 % (42.0-52.0) Mean Corpuscular Volume 95 FL (80-99) 94 FL (80-99) Mean Corpuscular Hemoglobin 32.6 PG (27.0-31.0) 33.7 PG (27.0-31.0) Mean Corpuscular Hemoglobin Concent 34.4 G/DL (32.0-36.0) 35.7 G/DL (32.0-36.0) Red Cell Distribution Width 10.3 % (11.6-14.8) 10.2 % (11.6-14.8) Platelet Count 167 K/UL (150-450) 143 K/UL (150-450) Mean Platelet Volume 7.3 FL (6.5-10.1) 7.1 FL (6.5-10.1) Neutrophils (%) (Auto) 74.3 % (45.0-75.0) 76.3 % (45.0-75.0) Lymphocytes (%) (Auto) 16.8 % (20.0-45.0) 15.7 % (20.0-45.0) Monocytes (%) (Auto) 6.6 % (1.0-10.0) 4.9 % (1.0-10.0) Eosinophils (%) (Auto) 1.8 % (0.0-3.0) 2.4 % (0.0-3.0) Basophils (%) (Auto) 0.5 % (0.0-2.0) 0.7 % (0.0-2.0) Sodium Level 142 MMOL/L (136-145) 139 MMOL/L (136-145) Potassium Level 3.6 MMOL/L (3.5-5.1) 3.1 MMOL/L (3.5-5.1) Chloride Level 105 MMOL/L (98-107) 101 MMOL/L (98-107) Carbon Dioxide Level 31 MMOL/L (21-32) 31 MMOL/L (21-32) Anion Gap 6 mmol/L (5-15) 7 mmol/L (5-15) Blood Urea Nitrogen 18 mg/dL (7-18) 18 mg/dL (7-18) Creatinine 0.7 MG/DL (0.55-1.30) 0.8 MG/DL (0.55-1.30) Estimat Glomerular Filtration Rate > 60 mL/min (>60) > 60 mL/min (>60) Glucose Level 104 MG/DL (74-106) 163 MG/DL (74-106) Calcium Level 8.6 MG/DL (8.5-10.1) 8.1 MG/DL (8.5-10.1) Urine Color Pale yellow Urine Appearance Clear Urine pH 6.5 (4.5-8.0) Urine Specific [place] 1.010 (1.005-1.035) Urine Protein Negative (NEGATIVE) Urine Glucose (UA) Negative (NEGATIVE) Urine Ketones Negative (NEGATIVE) Urine Occult Blood 1+ (NEGATIVE) Urine Nitrite Negative (NEGATIVE) Urine Bilirubin Negative (NEGATIVE) Urine Urobilinogen Normal MG/DL (0.0-1.0) Urine Leukocyte Esterase 1+ (NEGATIVE) Urine RBC 0-2 /HPF (0 - 0) Urine WBC 20-30 /HPF (0 - 0) Urine Squamous Epithelial Cells Few /LPF (NONE/OCC) Urine Bacteria Occasional /HPF (NONE) Magnesium Level 1.7 MG/DL (1.8-2.4) Iron Level 38 ug/dL (50-175) Total Iron Binding Capacity 212 ug/dL (250-450) Percent Iron Saturation 18 % (15-50) Unsaturated Iron Binding 174 ug/dL (112-346) Ferritin 158 NG/ML (8-388) Vitamin B12 Level 351 PG/ML (193-986) Folate 11.1 NG/ML (3.1-17.5) Thyroid Stimulating Hormone (TSH) 2.286 uiU/mL (0.358-3.740) Vancomycin Level Trough 4.8 ug/mL (5.0-12.0) Laboratory Tests Test 05/09/17 17:15 Vancomycin Level Trough 4.8 ug/mL (5.0-12.0) L Current Medications Medications (Trade) Dose Ordered Sig/Jay Route PRN Reason Start Time Stop Time Status Last Admin Dose Admin Acetaminophen (Tylenol) 650 mg Q4H PRN ORAL Mild Pain/Temp > 100.5 05/08/17 20:30 06/07/17 20:29 Acetaminophen/ Hydrocodone Bitart ([place] 10/325) 1 ea Q4H PRN ORAL For severe Pain 05/08/17 20:30 05/15/17 20:29 05/10/17 10:19 Acetaminophen/ Hydrocodone Bitart ([place] 5/325) 1 tab Q4H PRN ORAL Moderate Pain (Pain Scale 4-6) 05/08/17 20:30 05/15/17 20:29 05/08/17 20:33 Amlodipine Besylate (Norvasc) 10 mg DAILY ORAL 05/08/17 09:00 06/07/17 08:59 05/10/17 10:19 Aspirin (Ecotrin) 81 mg DAILY ORAL 05/08/17 09:00 06/07/17 08:59 05/10/17 10:07 Atenolol (Tenormin) 50 mg DAILY ORAL 05/08/17 09:00 06/07/17 08:59 05/10/17 10:08 Atorvastatin Calcium (Lipitor) 40 mg BEDTIME ORAL 05/09/17 21:00 06/08/17 20:59 05/09/17 21:41 Baclofen (Lioresal) 10 mg BID ORAL 05/08/17 09:00 06/07/17 08:59 05/10/17 10:08 Ceftriaxone Sodium 1 gm/ Dextrose 55 ml @ 110 mls/hr Q24H IVPB 05/09/17 13:30 05/16/17 13:29 05/10/17 14:16 Docusate Sodium (Colace) 100 mg TWICE A DAY ORAL 05/08/17 21:00 06/07/17 20:59 05/10/17 10:08 Ibuprofen (Advil) 800 mg BID ORAL 05/08/17 09:00 06/07/17 08:59 05/10/17 10:08 Lisinopril (Prinivil) 10 mg DAILY ORAL 05/08/17 09:00 06/07/17 08:59 05/10/17 10:19 Lorazepam (Ativan 2mg/ml 1ml) 1 mg Q4H PRN IV agitation 05/09/17 12:15 05/16/17 12:14 Lorazepam (Ativan) 0.5 mg Q4HR PRN ORAL agitation 05/09/17 12:30 05/16/17 12:29 05/09/17 13:11 Pantoprazole (Protonix) 40 mg DAILY ORAL 05/08/17 09:00 06/07/17 08:59 05/10/17 10:08 Potassium Chloride (K-Dur) 10 meq DAILY ORAL 05/08/17 09:00 06/07/17 08:59 05/10/17 10:08 Vancomycin HCl (Vanco rx to dose) 1 ea DAILY PRN MISC Per rx protocol 05/08/17 02:30 06/07/17 02:29 Vancomycin HCl 1 gm/Dextrose 275 ml @ 183.708 mls/hr Q8H IVPB 05/09/17 20:00 05/14/17 19:59 05/10/17 12:24 SYLVIA ALLEN May 10, 2017 16:28
--- NOTE | 2017-05-10 20:36 | General Progress Note ---
Assessment/Plan Status: stable, progressing Subjective Neurologic/Psychiatric: Reports: anxiety Allergies: Coded Allergies: No Known Allergies (Unverified , 05/08/17) Objective Last 24 Hour Vital Signs Date Time Temp Pulse Resp B/P (MAP) Pulse Ox O2 Delivery O2 Flow Rate FiO2 05/10/17 16:00 98.6 63 20 145/81 98 Room Air 05/10/17 12:00 98.2 61 20 149/81 100 Room Air 05/10/17 11:18 98.2 05/10/17 11:07 98.2 05/10/17 10:19 140/85 05/10/17 10:19 66 140/85 05/10/17 10:08 66 140/85 05/10/17 08:00 98.2 66 20 140/85 97 Room Air 05/10/17 04:00 98.1 62 20 151/82 95 Room Air 05/09/17 23:45 97.3 64 20 148/73 97 Room Air Intake and Output 05/10/17 05/11/17 19:00 07:00 Intake Total 440 ml Balance 440 ml Intake Oral 440 ml # Voids 1 Height (Feet): 5 Height (Inches): 6.00 Weight (Pounds): 175 General Appearance: no apparent distress, alert Neurologic: alert, oriented x 3, responsive, normal mood/affect Melany Garibay M.D. May 10, 2017 20:36
--- NOTE | 2017-05-12 16:01 | Discharge Summary ---
Discharge Summary Hospital Course Date of Admission May 07, 2017 at 23:06 Date of Discharge May 10, 2017 at 16:53 Admitting Diagnosis B/l leg cellulitis, hypotension Reason for Hospitalization: B/l leg cellulitis, hypotension HPI 61y/o male with pmh of HTN, HLD, GERD who presents w/ c/o b/l leg swelling/ redness/pain. Pt lives in the [facility] and states he has had worsening b/l leg swelling/pain/redness/warmth for the past several days. C/o subjective fevers/ chills, nausea (no emesis), intermittent abd pain. Denies chest pain, SOB, d/c, dysuria. Also c/o generalized weakness, difficulty ambulating 2/2 b/l leg pain. Pt also noted to be hypotensive initially but this quickly improved w/ IV fluids. Consultations Infectious disease, Psychiatry Hospital Course Pt was admitted and seen by ID. He was continued on IV vancomycin for b/l leg cellulitis. Ceftriaxone was added given concern for UTI. Pt's symptoms improved. He had episode of agitation likely delirium in setting of infection, which improved prior to d/c. ID recommended bactrim and keflex for one more week on discharge. Discharge physical exam General: alert, cooperative, no distress, appears stated age Head: normocephalic, without obvious abnormality, atraumatic Eyes: conjunctivae/corneas clear. PERRL, EOM's intact Throat: lips, mucosa, and tongue normal. MMM Neck: supple, symmetrical, trachea midline, and no JVD Lungs: clear to auscultation bilaterally Heart: regular rate and rhythm, S1, S2 normal, no murmur, click, rub or gallop Abdomen: soft, non-tender, non-distended, bowel sounds normal; no masses or organomegaly Extremities: extremities normal, atraumatic, no cyanosis, +BLE leg w/ mild erythema/edema/warmth and TTP to below the knees (improved) Pulses: 2+ and symmetric Skin: skin color, texture, turgor normal; no rashes or lesions Neurologic: grossly normal, no focal deficits Discharge Medications New Medications: Cephalexin* (Keflex*) 500 Mg Capsule 500 MG ORAL Q6H for 7 Days, #28 CAP 0 Refills Potassium Chloride (Potassium Chloride) 20 Meq Packet 20 MEQ ORAL DAILY, #30 PKT 0 Refills Trimethoprim/Sulfamethoxazole 160/800* (Bactrim Ds Tablet*) 1 Each Tablet 1 TAB ORAL Q12H for 7 Days, #14 TAB 0 Refills Continued Medications: Acetaminophen With Codeine (T#4) (Tylenol #4 Tab*) Y Tab 1 TAB ORAL TID, TAB 0 Refills Amlodipine Besylate* (Amlodipine Besylate*) 10 Mg Tablet 10 MG ORAL DAILY, TAB Aspirin Ec* (Aspirin Ec*) 81 Mg Tablet.dr 81 MG ORAL DAILY, TAB Atenolol* (Tenormin*) 50 Mg Tablet 50 MG ORAL DAILY, TAB Atorvastatin Calcium* (Atorvastatin Calcium*) 40 Mg Tablet 40 MG ORAL BEDTIME, TAB Baclofen* (Baclofen*) 10 Mg Tablet 10 MG ORAL BID, TAB Famotidine (Famotidine) 20 Mg Tablet 20 MG ORAL TWICE A DAY, #60 TAB 0 Refills Hydrochlorothiazide* (Hydrochlorothiazide*) 25 Mg Tablet 25 MG ORAL DAILY, TAB Ibuprofen* (Motrin*) 600 Mg Tablet 800 MG ORAL BID, #30 TAB 0 Refills Lisinopril* (Lisinopril*) 10 Mg Tablet 10 MG ORAL DAILY, TAB Omeprazole (Omeprazole) 20 Mg Capsule.dr 20 MG ORAL DAILY, CAP Discontinued Medications: Ciprofloxacin Hcl* (Ciprofloxacin Hcl*) 500 Mg Tablet 500 MG ORAL EVERY 12 HOURS, TAB 0 Refills Potassium Chloride (Potassium Chloride) 10 Meq Tablet.er 10 MEQ ORAL DAILY, #30 TAB 0 Refills Discharge Condition Upon Discharge: stable Discharge Disposition Patient was discharged to [facility] (04) Discharge Diagnoses: (1) Bilateral lower leg cellulitis (2) Hypotension (3) UTI (urinary tract infection) (4) Generalized weakness (5) HLD (hyperlipidemia) (6) HTN (hypertension) (7) GERD (gastroesophageal reflux disease) (8) Acute encephalopathy (9) Hypokalemia Xena Lu M.D. May 12, 2017 16:01
--- NOTE | 2017-05-13 23:10 | Diagnostic Imaging Report ---
APPROVED REPORT CPT Code: 42839 Present Symptoms Comments: HTN Cardiac disorder R/O DVT BILATERAL: Imaging reveals a patent deep venous system bilaterally. There is no evidence of thrombus within the femoral, popliteal or tibial segments. The greater saphenous veins are also within normal limits. Doppler indicates normal spontaneous flow within these segments.
== END 2017-05-10 16:53 | DRG 602 ==
LOC: EDSEX → 4W 23:06 → 4E 23:32
DX: L03.116 Cellulitis of left lower limb (principal); G93.40 Encephalopathy, unspecified; N39.0 Urinary tract infection, site not specified; I95.9 Hypotension, unspecified; I10 Essential (primary) hypertension; L03.115 Cellulitis of right lower limb; K21.9 Gastro-esophageal reflux disease without esophagitis; J44.9 Chronic obstructive pulmonary disease, unspecified; E78.00 Pure hypercholesterolemia, unspecified; E87.6 Hypokalemia; F41.9 Anxiety disorder, unspecified; Z87.891 Personal history of nicotine dependence; Z60.2 Problems related to living alone; Z86.73 Personal history of transient ischemic attack (TIA), and cerebral infarction without residual deficits
CPT/HCPCS: 36415; 80048; 80202; 80307; 81003; 82306; 82607; 82728; 82746; 83540; 83550; 83735; 84443; 85025; 87081; 87086; 87181; 93970; J8499